=== PATIENT | male | born 1935 | race Caucasian/White ===

== ENCOUNTER 2016-12-12 07:07 | Day surgery (SDC) | payer MEDICARE, OTHER ==
[~2016-12-12] VITALS: Ht 177.8 cm; Wt 86.2 kg
[~2016-12-12 07:07] MED LIST: ASPIR-LOW81 MG PO; CRESTOR20 MG PO; METOPROLOL SUCC50 MG PO; NORCO 5-325 TA1 EACH PO
--- NOTE | 2016-12-12 08:15 | NUR ---
PT SITTING UP IN BED, WATCHING TV. HE IS ALERT AND ORIENTED. HE EXPRESSED SEVERAL TIMES OF HIS READINESS FOR THIS PROCEDURE TO BE OVER. PT EXPRESSED GREAT CONFIDENCE IN DR STEVENS. HE GAVE THE IMPRESSION HE WAS VERY CONTENT BEING BY HIMSELF. PT WAS POLITE, THANKED ME FOR VISITING
--- NOTE | 2016-12-12 08:39 | NUR ---
12/12/16 0839 Jennie Marcum 0821 PATIENT ARRIVES TO PACU SLEEPING, AWAKENS WITH VERBAL STIMULI, ANSWERS QUESTIONS APPROPRIATELY, THEN BACK TO SLEEP. PATIENT PASSING GAS. NC AT 3 LITERS.
--- NOTE | 2016-12-15 09:12 | OR ---
[facility] [address], [place] [address] Signed PREOPERATIVE DIAGNOSES: 1. Personal history of colonic polyps. 2. Right colectomy in 2006. 3. Diverticulosis. POSTOPERATIVE DIAGNOSES: 1. Moderate to severe sigmoid diverticulosis. 2. Ileocolonic anastomosis (80 cm). 3. Indurated prostate, left greater than right. PROCEDURE: Colonoscopy without biopsy. ESTIMATED BLOOD LOSS: None. INDICATIONS: Deana is an 81-year-old gentleman, who has had colonic polyps removed as far back as 2001. I performed his right colectomy in 2006 for tubulovillous adenomatous cecal polyp with dysplasia. Since then, he has had other polyps removed. He also has left-sided diverticulosis. His anastomosis is 80 cm from the anal verge in the proximal transverse colon. He has always done well with Vers e d and fentanyl. 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 He also has a porcine mitral valve. 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 On this occasion, he returns to have his colonoscopy before he heads out on the ocean. He does look a little older, but he remains in excellent shape. In the office, I gave him a pamphlet on colonoscopy, a n d we reviewed the nature of the test along with its risks including but not limited to gas bloating, crampy abdominal pain, bleeding, perforation requiring surgery, and missed diagnosis. We also discussed the need for IV conscious sedation. He is also cristina re that polyps need 8-12 years to become cancer. At some point in his life, if his health starts to fail and he does not believe he is going to live 8-12 years, we can stop doing his colonoscopies. He had expressed understanding, wished to proceed. PROCEDURE NOTE: Deana was taken into our endoscopy suite and placed in the left lateral decubitus position. He was given IV sedation with 7 mg of Versed and 100 mcg of fentanyl. A digital rectal exam was performed. He did have an indurated prostate, it was slightl y enlarged. The left was certainly more prominent than the right. He could always review that with his primary care provider. The adult colonoscope was then introduced and advanced under direct visualization of the camera. He did have significant divertic u la in the sigmoid and distal left colon. They were small to large in size. They were moderate in number and scattered about. There was also some angulation in the sigmoid Electronically Signed By: AMI STEVENS MD 12/15/16 0912 PATIENT NAME: DEANA MELARA OPERATIVE REPORT DATE OF : 35 PHYSICIAN: AMI STEVENS MD REPORT #: [id number] REPORT IS CONFIDENTIAL AND NOT TO BE RELEASED WITHOUT AUTHORIZATION [facility] [address] [place] [id number] Signed colon. Consequently took some extra sedation in a few minutes to get the colonoscope through his sigmoid colon. After that, the colon opened up nicely, and the camera passed readily right up to the anastomosis at about 80 cm. The anastomosis was well healed. There was no evidence of any polyps or cancer in the area of anastomosis. The sco p e was then slowly withdrawn. The rest of the colon was without any polyps on this occasion. The rectum was unremarkable. Upon retroflexion of the scope, he did have some very small internal hemorrhoid tissue. After this, the gas was suctioned out, and the colonoscope removed. Deana tolerated the procedure quite well. RECOMMENDATIONS: Deana was welcomed to follow up in 5 years for repeat colonoscopy so long his health holds up. He might review his prostate exam with his primary care provider. MD BEATRIZ Castillo/Diego /[id number] cc: Dr. Roman Rubio Electronically Signed By: AMI STEVENS MD 12/15/16 0912 PATIENT NAME: DEANA MELARA NIAGARA OPERATIVE REPORT DATE OF : 35 PHYSICIAN: AMI STEVENS MD REPORT #: [id number] REPORT IS CONFIDENTIAL AND NOT TO BE RELEASED WITHOUT AUTHORIZATION
[2017-02-03] MEDS ORDERED: FLOMAX0.4 MG PO (13:24)
[2017-02-04] MEDS ORDERED: LIPITOR20 MG PO (13:06)
== END 2016-12-12 09:40 | disposition home or self-care (01) ==
LOC: OPS 07:07 → DS 07:07 → OPS 08:15 → DS 09:00 → OPS 09:00
PROVIDERS: Colon & Rectal Surgery
PROC: 0DJD8ZZ Inspection of Lower Intestinal Tract, Via Natural or Artificial Opening Endoscopic (ICD-10-PCS; principal; 2016-12-12 08:15)
DX: K57.30 Diverticulosis of large intestine without perforation or abscess without bleeding (principal); K64.8 Other hemorrhoids; I10 Essential (primary) hypertension; I25.10 Atherosclerotic heart disease of native coronary artery without angina pectoris; E78.5 Hyperlipidemia, unspecified; Z87.01 Personal history of pneumonia (recurrent); Z86.010 Personal history of colon polyps; Z90.89 Acquired absence of other organs; Z95.5 Presence of coronary angioplasty implant and graft; Z98.890 Other specified postprocedural states; Z88.0 Allergy status to penicillin; Z88.5 Allergy status to narcotic agent; Z79.899 Other long term (current) drug therapy
CPT/HCPCS: 99152; 99153; J2250; J3010; J7120

== ENCOUNTER 2024-01-05 12:02 | Inpatient (IN) | payer OTHER, MEDICARE ==
[~2024-01-05] VITALS: Ht 177.8 cm; Wt 65.0 kg
[~2024-01-05 12:02] MED LIST changes: +FLOMAX0.4 MG PO; +LIPITOR20 MG PO
[2024-01-05] MEDS ORDERED: ALBUTEROL/IPRATROPIUM 3 ML NEB INH PRN (13:15)
[2024-01-05 13:32] LABS: BASOPHILS 1.4 % (0-2); EOSINOPHILS 4.3 % (0-6); HEMOGLOBIN 13.7 g/dL (12.0-18.0); LYMPHOCYTES 17.1 % (24-44); MCH 29.5 (27-36); MCHC 32.5 g/dl (30-36); MCV 90.7 fl (81-99); MONOCYTES 13.7 % (0-12); NEUTROPHILS 63.5 % (39-80); PLATELET COUNT 150 K/uL (140-440); RBC 4.63 M/ul (4.3-5.7); RDW 15.4 (10.5-15.0)
[2024-01-05 13:52] LABS: ALBUMIN 3.3 g/dL (3.4-5.0); ALBUMIN/GLOBULIN RATIO 0.94 (1.1-2.4); ANION GAP 13.1 (7-21); BILIRUBIN, TOTAL 1.5 ng/dL (0.2-1.0); BUN/CREATININE RATIO 15.83 (6.0-28.6); CALCIUM 8.8 mg/dL (8.5-10.1); CREATININE, SERUM 1.2 mg/dL (0.70-1.30); MAGNESIUM 2.1 mg/dL (1.8-2.4); POTASSIUM 4.1 mmol/L (3.5-5.1); PROTEIN, TOTAL 6.8 g/dL (6.4-8.2)
[2024-01-05 14:02] LABS: PH, VENOUS 7.386 (7.31-7.41)
[2024-01-05] MEDS ORDERED: FUROSEMIDE 40 MG/4 ML VIAL IV ONE (15:00)
--- NOTE | 2024-01-05 17:28 | NUR ---
Pt report received from RN Sana Pereira in ED9. Pt is awake, sister in room. Pt transferred to room 110 via ED Stretcher by this RN. Pt transferred to bed via unassisted scoot method. VS obtained. SPO2 81% on room air, pt placed on 2LPM O2 via NC which increased his SPO2 to 100%, O2 decreased to 1lpm, sats at 97%. Pt is extremely [place] but is able to understand and respond if spoken loudly too. Shortly after arriving to the room, pt stated he needed to use the toilet. 2 person hands on assist for balance to toilet where pt sat to void, unmeasured. Pt's underwear removed as they were soiled with urine, and briefs placed on pt. Pt ambulated with 1PA with FWW back to bed. Pt becomes extremely short of breath whether he is active or not, but it increases with activity. His sats were obtained after he was back in bed. Pt and sister oriented to room and call light. Call light placed in reach, side rails up x4, bed alarm on. Assessment done at this time.
[2024-01-05 17:33] VITALS: BP 115/70
--- NOTE | 2024-01-05 19:24 | NUR ---
REPORT RECEIVED FROM DAY SHIFT RN. PT LYING IN BED ALERT AND ORIENTED. TO SIDE OF BED TO VOID. LINENS AND BRIEF CHANGED. BACK TO BED, TREV FAIR. SpO2 83% ON 1L/NC WITH ACTIVITY. SOB NOTED. PT ABLE TO RECOVER QUICKLY TO LOW 90'S AFTER A MINUTES REST. NO FURTHER NEEDS. WHITE BOARD UPDATED. CALL LIGHT IN REACH. BED ALARM FOR SAFETY.
[2024-01-05] MEDS ORDERED: ALBUTEROL/IPRATROPIUM 3 ML NEB INH SCH (20:00)
--- NOTE | 2024-01-05 20:25 | NUR ---
BED ALARM SOUNDING. ASSISTED TO SIDE OF BED FOR VOID IN URINAL W FWW . BACK IN BED. NC IN PLACE. CPOX ON. BED ALARM ON. LIGHTS OFF IN ROOM.
[2024-01-05 20:52] VITALS: BP 115/64
--- NOTE | 2024-01-05 21:01 | NUR ---
PT BACK TO BED FROM USING URINAL. EVENING ASSESSMENT COMPLETE. PT DENIES PAIN OR NAUSEA. DENIES SOB. TACHYPNEA NOTED. SpO2 97% WITH 2L/NC IN PLACE. LUNGS CLEAR. CPOX IN PLACE. PT DENIES QUESTIONS OR CONCERNS. CALL LIGHT IN REACH. BED ALARM FOR SAFETY.
--- NOTE | 2024-01-05 23:09 | NUR ---
BED ALARM SOUNDING. PT UP TO SIDE OF BED TO VOID. PT INCONTINENT WELL. NEW BRIEF PROVIDED. BACK TO BED. BED ALARM IN PLACE.
[2024-01-06] VITALS (10 sets, daily range): BP systolic 94–128; BP diastolic 44–81
--- NOTE | 2024-01-06 00:39 | NUR ---
BED ALARM SOUNDING. PT UP TO SIDE OF BED WITH FWW AND 1PA TO VOID 175 ML CLEAR YELLOW URINE. BACK TO BED, TREV WELL. DENIES SOB. INCREASED RESPIRATIONS WITH ACTIVITY NOTED. SpO2 REMAINS >90% WITH 2L/NC. NO FURTHER NEEDS. BED ALARM FOR SAFETY. CALL LIGHT IN REACH.
--- NOTE | 2024-01-06 02:45 | NUR ---
PT RESTING IN BED WITH EYES CLOSED LYING ON LEFT SIDE. RESPIRATIONS EVEN. SpO2 98% WITH 2L/NC IN PLACE. HR 60'S. BED ALARM IN PLACE. CALL LIGHT IN REACH.
--- NOTE | 2024-01-06 03:11 | NUR ---
IN TO ASSIST PT USE URINAL AT BEDSIDE WITH 1PA AND FWW. PT INCONTINENT WELL. ALYCIA CARE DONE AND CLEAN BRIEF PROVIDED. LINENS CHANGED. BACK TO BED. PT NOTED TO BE TACHYPNEIC WITH ACTIVITY. DENIES SOB. SpO2 REMAINS >90% WITH 2L/NC DURING ACTIVITY. LUNGS CLEAR THROUGHOUT. VS OBTAINED, WNL. NO FURTHER NEEDS. BED ALARM IN PLACE. CALL LIGHT IN REACH.
[2024-01-06 05:26] LABS: RBC 4.36 M/ul (4.3-5.7)
[2024-01-06 05:28] LABS: BASOPHILS 1.3 % (0-2); EOSINOPHILS 5.2 % (0-6); HEMATOCRIT 39.6 % (35.0-50.0); LYMPHOCYTES 19.5 % (24-44); MCH 29.9 (27-36); MCHC 32.9 g/dl (30-36); MCV 90.9 fl (81-99); PLATELET COUNT 136 K/uL (140-440); RDW 15.5 (10.5-15.0)
[2024-01-06 05:38] LABS: ANION GAP 9.8 (7-21); BUN/CREATININE RATIO 15.55 (6.0-28.6); CALCIUM 8.6 mg/dL (8.5-10.1); CREATININE, SERUM 1.35 mg/dL (0.70-1.30); POTASSIUM 3.8 mmol/L (3.5-5.1)
--- NOTE | 2024-01-06 05:48 | NUR ---
LAB IN FOR MORNING DRAW. PT UP TO SIDE OF BED TO VOID WITH 1PA AND FWW TO VOID. DAILY WEIGHT OBTAINED. BACK TO BED, TREV WELL. VS AND I&O OBTAINED. SpO2 HIGH 90'S ON 2L/NC. OXYGEN TITRATED TO OFF AT THIS TIME. CPOX IN PLACE. PT DENIES FURTHER NEEDS. BED ALARM FOR SAFETY. CALL LIGHT IN REACH.
--- NOTE | 2024-01-06 07:32 | NUR ---
IN ROOM TO ADMIN LASIX PER EMAR. IV FLUSHED WELL. PT RESTING IN BED. ASSESSMENT COMPLETE. PT C/O PAIN IN HIPS, 08/09. PT DENIES ANY NEEDS AT THIS TIME, CALL LIGHT WITHIN REACH.
--- NOTE | 2024-01-06 07:49 | NUR ---
REPORT FROM SYED COOK. PT LAYING ON SIDE IN BED WITH EYES CLOSED. O2 TURNED OFF, SATS 93%.
--- NOTE | 2024-01-06 08:10 | NUR ---
ECHO IN ROOM. PT UP TO RESTROOM AGAIN. 1 PERSON TASH FWW. PT DOES WELL JUST OCCASIONALLY TIPPY.
[2024-01-06] MEDS ORDERED: FUROSEMIDE 40 MG/4 ML VIAL IV SCH (09:00)
--- NOTE | 2024-01-06 09:00 | NUR ---
Spoke with Will. He states he lives alone in a home with 4 steps. He has 1 rail on the steps and a rail where he vincent to get to the steps. He has a 4 ww and a cane. Pt states he drives, but his license was pulled by the [facility]. He is upset by this. Pt states his sister shops and drives him, he does his own cleaning, and cooks in the microwave. He denies any needs. I discussed with him he would most likely qualify for some cg hours through the [employer]. He declines and states, he does not want or need. He [facility] He cannot remember who the provider is. I called and per the [facility], his pcp is Imani Guerrero. They are unsure if this is a PA, SENIOR ARCHITECT, or MD. Pt states he will go home on dc. He denies financial issues and states he has a disability pension from the [facility] and his SS. Pt is not interested in any outside help, except from his sister. I attempted to call his sister, but could not reach. Sister is Smita Sin [phone].
--- NOTE | 2024-01-06 09:04 | NUR ---
PT UP TO RESTROOM AGAIN. ANUSHKA UNABLE TO DO ECHO TODAY, PARTS ORDERED FOR HER MACHINE.
--- NOTE | 2024-01-06 10:32 | NUR ---
UR CLINICAL REVIEW: [facility]- [facility]ET INPATIENT STATUS [facility] 01/05/24 @ 1627 ORDER MACTHED REG NO AUTH REQUIRED PER [facility] GUIDELINES DISCHARGE TO HOME WHEN STABLE
--- NOTE | 2024-01-06 10:36 | NUR ---
VISITED DURING SPIRITUAL CARE ROUNDS. PT SUPPORTED BY IN ROOM, STRONG RELATIONAL AND [employer] IN EVIDENCE. PT DECLINED CREDIT REPRESENTATIVE VISITS, STATING ONLY INTERESTED IN [employer]. [place]. DECLINED OFFER TO CALL [employer]. [employer]. DIGITAL PRODUCT SPECIALIST PROVIDED SUPPORTIVE PRESENCE, HOSPITALITY, FACILITATED CONNECTION TO [employer], PROVIDED PRAYER. PT AND EXPRESSED GRATITUDE.
[2024-01-06] MEDS ORDERED: PHARMACY RENAL DOSE ADJUSTMENT 1 DOSE MISC PO SCH (12:00)
--- NOTE | 2024-01-06 13:22 | NUR ---
PT UP TO THE RESTROOM AGAIN. LARGE QTY URINE OUTPUT TODAY. WOULD LIKE TO TAKE A NAP.
[2024-01-06] MEDS ORDERED: VENTOLIN HFA18 GM INH (13:30)
[2024-01-06] MEDS ORDERED: LIPITOR40 MG PO (13:32)
[2024-01-06] MEDS ORDERED: PLAVIX75 MG PO (13:33)
[2024-01-06] MEDS ORDERED: PROSCAR5 MG PO (13:36)
--- NOTE | 2024-01-06 13:36 | NUR ---
Received a call from pts daughter, Anny. She is stating pt need assistance. I let her know, the pt has declined all assistance. I am unable to ask for a cg if he does not want one. I offered her the phone number for the the [employer] program. A THEATER EDUCATION TEACHER and RN could see him in the home and he could have a access to CG. Daughter is on her way from [place]. She will find me tomorrow. She states she is mainly looking for a way to help him. She is able to visit 4 times a year and lives hours away. She was hoping we could force him to accept assistance. I let her know we cannot force anyone to do anything.
[2024-01-06] MEDS ORDERED: COZAAR25 MG PO (13:38)
--- NOTE | 2024-01-06 14:20 | NUR ---
PT UP TO BR 1 PA W FWW. BACK TO CHAIR. VITALS AND I'S AND O'S COMPLETE. ASSESSMENT COMPLETE. PT DENIES ANY NEEDS AT THIS TIME, CALL LIGHT WITHIN REACH
--- NOTE | 2024-01-06 14:46 | NUR ---
MED REC COMPLETE
[2024-01-06] MEDS ORDERED: TAMSULOSIN HCL 0.4 MG CAP PO SCH (15:22)
--- NOTE | 2024-01-06 15:26 | NUR ---
PT UP TO BR, 1 PA W FWW. PT C/O SORENESS ON BUTTOCKS/COCCYX, ALLEVYN PLACED ON COCCYX. PT BACK TO CHAIR, CHAIR ALARM SET. PT DENIES ANY NEEDS AT THIS TIME, CALL LIGHT WITHIN REACH.
--- NOTE | 2024-01-06 18:01 | NUR ---
PT UP TO RESTROOM FOR BM. NOTICED PT HAD A FAST BREATHING EPISODE, LISTENED TO HR WITH STETH AND FELT PULSE, VERY IRREGULAR. CALLED DR Mai FOR EKG, WILL CALL WITH RESULTS.
[2024-01-06] MEDS ORDERED: METOPROLOL TARTRATE 25 MG TAB PO ONE (18:30)
[2024-01-06] MEDS ORDERED: METOPROLOL TARTRATE 5 MG/5 ML VIAL IV ONE (18:30)
[2024-01-06] MEDS ORDERED: METOPROLOL TARTRATE 25 MG TAB PO SCH (18:30)
--- NOTE | 2024-01-06 18:57 | NUR ---
PT PACER INTEROGATED WITH REP ON PHONE. REPORT WILL BE FAXED TO ED FAX MACHINE. CALLED ED TO HAVE THEM SEND IT HERE. DTR [place] IN ROOM AND BROUGHT HEARING AIDS AND PACER CARD.
--- NOTE | 2024-01-06 19:33 | NUR ---
REPORT RECEIVED FROM DAY SHIFT RN. PT SITTING IN RECLINER ALERT AND ORIENTED. DENIES NEEDS. WHITE BOARD UPDATED. CALL LIGHT IN REACH. DAUGHTER IN ROOM. CHAIR ALARM FOR SAFETY.
--- NOTE | 2024-01-06 20:09 | NUR ---
SBA BACK TO BED. EVENING ASSESSMENT COMPLETE. PT DENIES PAIN OR NAUSEA. DENIES SOB. RA. LUNGS CLEAR. SpO2 95%. IRREGULAR BREATHING NOTED AT TIMES. CPOX IN PLACE. TELE #[address] HR IRREGULAR. PT DENIES CHEST PAIN. VS AND I&O OBTAINED. NO FURTHER NEEDS AT THIS TIME. CALL LIGHT IN REACH. BED ALARM FOR SAFETY.
--- NOTE | 2024-01-06 20:42 | NUR ---
BED ALARMING. PATIENT UP AT BEDSIDE TO USE THE URINAL WITH ASSISTANCE. VOIDED 1125ML YELLOW URINE. PATIENT IS BACK IN BED. DENIES FURTHER NEEDS AT THIS TIME. BED ALARM SET ON FOR SAFETY.
--- NOTE | 2024-01-06 21:20 | NUR ---
NOTIFIED OF PT BP AND MADE AWARE INTERROGATION REPORT HAS YET TO BE RECEIVED. HOLD PARAMETERS RECEIVED FOR PO METOPROLOL VERIFIED WITH READBACK METHOD.
--- NOTE | 2024-01-06 21:26 | NUR ---
[facility] NO ANSWER. ON FINAL ATTEMPT, SPOKE TO REP JASSO VIA PHONE AND INFORMED HER THAT REPORT HAS YET TO BE FAXED AND WAS COMPLETED ON @ APPROX 1830. CONFIRMED WITH ROMERO, FAX # FOR REPORT TO BE FAXED TO IS [phone]. REP ALSO GIVEN MAIN PHONE # FOR HOSPITAL FOR CALL BACK IF THERE IS AN ISSUE WITH FAX DELIVERY. PRIMARY RN JOEY UPDATED.
--- NOTE | 2024-01-06 21:40 | NUR ---
BED ALARM SOUNDING. PT UP TO SIDE OF BED TO VOID. BRIEF CHANGED DUE TO INCONTINENCE. PT REPORTS SOB. IRREGULAR BREATHING NOTED. SpO2 BRIEFLY DOWN TO 70'S AFTER ACTIVITY. 2L/NC PLACED. SpO2 QUICKLY BACK TO MID 90'S. GAIT WEAK AND UNSTEADY. DISCUSSED WITH PT ACTIVITY TOLERANCE AND PT AGREES HE IS "EXHAUSTED." PT AGREEABLE TO MALE PUREWICK TO ALLOW FOR REST.
[2024-01-07] VITALS (10 sets, daily range): BP systolic 89–123; BP diastolic 52–81
[2024-01-07] MEDS ORDERED: METOPROLOL TARTRATE 25 MG TAB PO SCH
--- NOTE | 2024-01-07 00:31 | NUR ---
BED ALARM SOUNDING. PT REPOSITIONING SELF IN BED. VS OBTAINED. MD UPDATED. TELEPHONE ORDERS RECEIVED VERIFIED WITH READBACK METHOD TO HOLD MIDNIGHT DOSE OF METOPROLOL DUE TO HR OCCASIONALLY IN THE 50'S.
--- NOTE | 2024-01-07 01:05 | NUR ---
bed alarm going off, pt attempting to get oob. pt reminded of male external catheter, pt back laying in bed and verbalized understanding. bed alarm resumed and call light in reach. primary rn updated.
--- NOTE | 2024-01-07 02:00 | NUR ---
BED ALARM SOUNDING. PT NEEDS TO VOID. REMINDED OF MALE EXTERNAL CATHETER. CATHETER PATENT. ATTENDS DRY. ASSISTED TO REPOSITION. ASSESSMENT COMPLETE. NO FURTHER NEEDS.
--- NOTE | 2024-01-07 03:14 | NUR ---
BED ALARM SOUNDING. PT NEED TO VOID, STATES "I CAN'T PEE IN BED." EXTERNAL CATHETER REMOVED WITH ADHESIVE REMOVER. PT STOOD AT SIDE OF BED WITH 2PA AND FWW TO VOID 125 ML. ALYCIA CARE DONE. CLEAN ATTENDS IN PLACE. PT BACK TO BED. GAIT WEAK AND UNSTEADY. PT IMPULSIVE WITH DIFFICULTY FOLLOWING DIRECTIONS DUE TO HARD OF HEARING EVEN WHILE USING HEARING AID DEVICE. INCREASED WORK OF NOTED WITH ACTIVITY. PT REPORTS SOB. SpO2 REMAINS MID 90'S ON RA. RESPIRATIONS EVEN AT REST. PT DENIES FURTHER NEEDS. CALL LIGHT IN REACH. BED ALARM FOR SAFETY.
--- NOTE | 2024-01-07 06:51 | NUR ---
PT RESTING WITH EYES CLOSED. AWAKENS EASILY. VS AND I&O OBTAINED. DAILY WEIGHT OBTAINED. SCHEDULED MEDS ADMIN PER EMAR. PT DENIES FURTHER NEEDS. CALL LIGHT IN REACH. BED ALARM FOR SAFETY.
--- NOTE | 2024-01-07 07:20 | NUR ---
RECEIVED REPORT FROM SYED COOK. PT LYING IN BED, CPOX IN PLACE WITH O2 SATURATION AT >94%. CALL LIGHT WITHIN REACH.
--- NOTE | 2024-01-07 07:30 | NUR ---
PT RESTING IN BED. PT UP TO CHAIR SBA W FWW. LINENS CHANGED. PT DENIES RESTROOM NEEDS. COFFEE PROVIDED. PT DENIES ANY NEEDS AT THIS TIME CALL LIGHT WITHIN REACH
--- NOTE | 2024-01-07 08:15 | NUR ---
PT UP TO CHAIR EATING BREAKFAST, CHAIR ALARM ON FOR SAFETY. PT RESPONDS APPROPRIATELY TO ASSESSMENT AND QUESTIONS, CONTINUES TO BE DISORIENTED TO DATE. HEART TONES IRREGULAR, 87BPM UPON AUSCULTATION. NO EDEMA PRESENT AT THIS TIME. PT EATING BREAKFAST AND TAKING PO MEDICATION W/O DIFFICULTY. PT STATES NO NEEDS AT THIS TIME, CALL LIGHT WITHIN REACH.
[2024-01-07 08:56] LABS: BASOPHILS 0.8 % (0-2); EOSINOPHILS 4.3 % (0-6); HEMATOCRIT 46.2 % (35.0-50.0); HEMOGLOBIN 15.3 g/dL (12.0-18.0); LYMPHOCYTES 13.5 % (24-44); MCH 29.9 (27-36); MCHC 33.2 g/dl (30-36); MCV 90.1 fl (81-99); MONOCYTES 12.6 % (0-12); NEUTROPHILS 68.8 % (39-80); PLATELET COUNT 168 K/uL (140-440); RBC 5.12 M/ul (4.3-5.7); RDW 15.4 (10.5-15.0)
[2024-01-07 09:08] LABS: ANION GAP 11.4 (7-21); BUN/CREATININE RATIO 22.11 (6.0-28.6); CALCIUM 8.8 mg/dL (8.5-10.1); CREATININE, SERUM 1.04 mg/dL (0.70-1.30); MAGNESIUM 1.7 mg/dL (1.8-2.4); POTASSIUM 3.4 mmol/L (3.5-5.1)
--- NOTE | 2024-01-07 09:35 | NUR ---
pt up in chair. vitals and i's and o's complete. pt standing by chair to use urinal 1 pa. new brief put on pt. pt denies any needs at this time, call light within reach.
--- NOTE | 2024-01-07 09:43 | NUR ---
PT UP TO CHAIR, STATES HE NEEDS TO USE URINAL. PT STANDS AT CHAIR TO USE URINAL, DENIES SOB. PT BACK UP TO CHAIR, DENIES ANY NEEDS AT THIS TIME, CALL LIGHT WITHIN REACH, DAUGHTER AT THE BEDSIDE.
--- NOTE | 2024-01-07 09:46 | NUR ---
SPOKE WITH DAUGHTER, JACQUES, STATES PATIENT HAS AGREED TO HAVE A CAREGIVER AT HOME. INFORMED OF NEED TO COMPLETE PAPERWORK FOR [facility] TO HAVE SENT TO BEGIN PROCESS TO GETTING A CAREGIVER. CONCERNED ABOUT PT, BUT DAUGHTER STATES SHE HAS SPOKEN TO PATIENT AND HE HAS AGREED TO HOME HEALTH PT WELL IF NEEDED. DAUGHTER ALSO PROVIDES COPY OF MEDICAL ADVANCED DIRECTIVE, POA AND WILL AND TESTAMENT.
--- NOTE | 2024-01-07 10:29 | NUR ---
VISITED DURING SPIRITUAL CARE ROUNDS. PT WORKING WITH PHYSICAL THERAPY. DID NOT INTERRUPT. PROVIDED PRAYER.
--- NOTE | 2024-01-07 10:34 | NUR ---
pt up working with OT
--- NOTE | 2024-01-07 10:40 | NUR ---
CALL LIGHT ANSWERED. PT NEEDING TO USE BR. PT TO BR 1 PA W FWW. BACK TO CHAIR. CHAIR ALARM SET. PT DENIES ANY NEEDS AT THIS TIME, CALL LIGHT IN REACH
--- NOTE | 2024-01-07 10:47 | NUR ---
CONNECTED WITH FAMILY IN [place] DURING SPIRITUAL CARE ROUNDS. STRONG RELATIONAL AND [employer] EXHIBITED. NEEDLE GRADER PROVIDED SUPPORTIVE PRESENCE, FACILITATED CONNECTION WITH [employer], PROVIDED PRAYER. DAUGHTER EXPRESSED GRATITUDE, HOPE.
--- NOTE | 2024-01-07 10:52 | NUR ---
AT THE BEDSIDE. PT AND DAUGHTER STATE NO NEEDS AT THIS TIME, CALL LIGHT WITHIN REACH.
--- NOTE | 2024-01-07 11:02 | NUR ---
PT DAUGHTER USES CALL LIGHT D/T PT STATING HE NEEDS TO USE THE URINAL. THIS RN AND PHYSICAL THERAPY TO BEDISIDE, PT STANDS AT CHAIR AND USES URINAL, DRIBBLING INTO BREIFS, NEW BRIEFS WITH PAD IN PLACE. PT UP FOR WALK WITH PHYSICAL THERAPY. PT DAUGHTER STATES NO NEEDS AT THIS TIME.
[2024-01-07] MEDS ORDERED: APIXABAN 5 MG TAB PO SCH (11:06)
--- NOTE | 2024-01-07 11:36 | NUR ---
PT WORKING WITH PT. CCU CALLED TO CHECK ON PT DUE TO RHYTHM ON TELE. RN NOTIFIED
--- NOTE | 2024-01-07 11:50 | NUR ---
PT STANDS AT CHAIR TO USE URINAL, BACK TO CHAIR. PT TAKES PO MEDICATIONS W/O DIFFICULTY. PT STATES NO FURTHER NEEDS AT THIS TIME, LUNCH SET UP ON TRAY.
--- NOTE | 2024-01-07 12:15 | NUR ---
PT UP IN CHAIR EATING LUNCH
--- NOTE | 2024-01-07 12:55 | NUR ---
PT RESTING IN BED. VITALS AND IS AND OS COMPLETE. PT DENIES ANY NEEDS. WATER REFILLED. CALL LIGHT IN REACH/.
--- NOTE | 2024-01-07 14:13 | NUR ---
[facility] and fax[facility] to [facility].
--- NOTE | 2024-01-07 15:57 | NUR ---
DISCUSSED DC PLACEMENT AT SNF WITH PATIENT AND DAUGHTER. PATIENT REFUSES SNF PLACEMENT. DISCUSSED CAREGIVER WITH PATIENT, VERBALIZES HE IS OK WITH HAVING A CAREGIVER IN THE HOME AND HOME HEALTH PT/OT AT DISCHARGE. INFORMATION FOR FAMILY RESOURCES GIVEN TO DAUGHTER.
--- NOTE | 2024-01-07 16:45 | NUR ---
PT USES URINAL INDEPENDENTLY WHILE IN CHAIR, STATES NO NEEDS AT THIS TIME, CALL LIGHT WITHIN REACH.
--- NOTE | 2024-01-07 17:24 | NUR ---
PT USES URINAL INDEPENDENTLY IN CHAIR. URINAL EMPTIED. PT UP TO CHAIR EATING DINNER INDEPENDENTLY. PT STATES NO NEEDS AT THIS TIME, CALL LIGHT WITHIN REACH.
--- NOTE | 2024-01-07 19:05 | NUR ---
REPORT RECEIVED FROM BEATRIZ LYNCH. pt RESTING IN THE BED WITH EYES CLOSED. BED ALARMS ON. CALL LIGHT WITHIN REACH.
--- NOTE | 2024-01-07 20:36 | NUR ---
MAINTENANCE MECHANIC OBTAINED VITALS AND I&O. PT B/P WAS 89/60 RN NOTIFIED. PT STATES NO FURTHER NEEDS AT THIS TIME. CALL LIGHT WITHIN REACH.
--- NOTE | 2024-01-07 21:10 | NUR ---
ASSESSMENT DONE. pt DESATTING TO 77% AND THEN O2 REBOUNDING BACK UP TO 96%. pt REMINDED TO TAKE DEEP BREATHS. pt ASKED TO GO PEE. WHEN pt BACK IN BED pt O2 SATURATION REMAINED ABOVE 90%. LUNG SOUNDS ARE CLEAR. BED ALARM ON. URINAL AT BED SIDE. SCHEDULED MEDICATION ADMINISTERED, SEE MAR. NO OTHER NEEDS AT THIS TIME. CALL LIGHT WITHIN REACH.
--- NOTE | 2024-01-07 22:22 | NUR ---
BED ALARM ANSWERED. PT WAS AT EDGE OF BED STATING THAT HE NEEDED TO USE URINAL. POWERHOUSE ELECTRICIAN ASSISTED PT TO STAND AT BEDSIDE WITH FWW. PT USED URINAL. OUTPUT MEASURED. PT ASSISTED BACK INTO BED. PT STATES NO FURTHER NEEDS AT THIS TIME. CALL LIGHT PLACED WITHIN REACH. BED ALARM ON.
--- NOTE | 2024-01-07 23:58 | NUR ---
pt RESTING WITH EYES CLOSED, RR EVEN AND UNLABORED. CALL LIGHT WITHIN REACH.
[2024-01-08] VITALS (10 sets, daily range): BP systolic 96–112; BP diastolic 49–66
--- NOTE | 2024-01-08 00:45 | NUR ---
EDGE BLACKER AND RN ENTERED ROOM. VITALS AND I&O OBTAINED. PT STATES NO FURTHER NEEDS AT THIS TIME. CALL LIGHT WITHIN REACH.
--- NOTE | 2024-01-08 01:29 | NUR ---
BED ALARM ANSWERED. PT NEEDED TO VOID. MANUFACTURING QUALITY MANAGER ASSISTED PT TO STAND AT BEDSIDE AND USE URINAL. OUTPUT MEAUSRED. PT ASSISTED BACK TO BED. PT STATES NO FURTHER NEEDS AT THIS TIME. CALL LIGHT PLACED WITHIN REACH.
--- NOTE | 2024-01-08 01:30 | NUR ---
REPORT RECEIVED FROM NURSE KATE. PATIENT BACK IN BED AFTER VOIDING. BED ALARM ON, CALL LIGHT WITHIN REACH.
--- NOTE | 2024-01-08 03:30 | NUR ---
PATIENT RESTING IN BED WITH EYES CLOSED. RESPIRATIONS EVEN AND UNLABORED. CPOX READINGS WNL. CALL LIGHT WITHIN REACH, BED ALARM ON.
--- NOTE | 2024-01-08 04:49 | NUR ---
BED ALARM ANSWERED. PT SITTING AT EDGE OF BED STATING HE NEEDED TO VOID. PUMP ASSEMBLER ASSISTED PT WITH URINAL. OUTPUT MEASURED. PT ASSISTED BACK INTO BED. PUMP ASSEMBLER OBTAINED VITALS AND I&O. PT STATES NO FURTHER NEEDS AT THIS TIME. CALL LIGHT WITHIN REACH. BED ALARM ON.
--- NOTE | 2024-01-08 05:29 | NUR ---
IN ROOM TO FIX TELE LEADS. NO ADDITIONAL NEEDS OR CONCERNS VERBALIZED BY pt, CALL LIGHT IN REACH AND BED ALARM ON FOR SAFETY.
--- NOTE | 2024-01-08 06:00 | NUR ---
PATIENT RESTING IN BED. AM MEDICATION GIVEN. DAILY WEIGHT OBTAINED. TELE IN PLACE READINGS REMAIN NORMAL PER PATIENT BASELINE. PATIENT IS ON 2L OXYGEN NC WHILE SLEEPING. NO FURTHER NEEDS AT THIS TIME. CALL LIGHT WITHIN REACH. BED ALARM ON.
--- NOTE | 2024-01-08 06:39 | NUR ---
BED ALARM ANSWERED. PT SITTING ON EDGE OF BED STATING HE NEEDED TO VOID. WOOD MILLER ASSISTED PT TO STAND AT BEDSIDE AND USE URINAL. OUTPUT MEASURED PT ASSISTED BACK TO BED. URINAL EMPTIED. PT STATES NO FURTHER NEEDS AT THIS TIME. CALL LIGHT WITHIN REACH. BED ALARM ON.
--- NOTE | 2024-01-08 07:45 | NUR ---
Received report from [facility] nurse. Pt is awake lying in bed. Pt greeted this RN. Denies needs at this time. Respirations even and regular CPOX in place.
[2024-01-08 08:47] LABS: ANION GAP 7.6 (7-21); BUN/CREATININE RATIO 21.56 (6.0-28.6); CALCIUM 8.5 mg/dL (8.5-10.1); CREATININE, SERUM 1.02 mg/dL (0.70-1.30); MAGNESIUM 1.7 mg/dL (1.8-2.4); POTASSIUM 3.6 mmol/L (3.5-5.1)
--- NOTE | 2024-01-08 09:14 | NUR ---
MANAGER ENDOSCOPY WENT INTO PATIENTS ROOM TO ASSIST WITH AMBULATING PATIENT FROM BED TO BATHROOM AND THEN TO THE CHAIR. MANAGER ENDOSCOPY ASSISTED PATIENT TO BATHROOM AND PROVIDED PATIENT WITH NEW PULL UP. MANAGER ENDOSCOPY THEN ASSISTED PATIENT TO CHAIR, CHAIR ALARM SET, CALL LIGHT WITHIN REACH, NO FURTHER NEEDS AT THIS TIME.
--- NOTE | 2024-01-08 09:21 | NUR ---
RA TRIAL DONE AND REMAINS ON RA WITH SpO2 AT 94%.
--- NOTE | 2024-01-08 10:23 | NUR ---
RESPONDED TO REQUEST BY FAMILY TO ARRANGE BURGLAR ALARM ASSEMBLER VISIT. LEFT NOTE IN SACRISTRY TO REQUEST VISIT.
--- NOTE | 2024-01-08 10:37 | NUR ---
VISITED WITH DAUGHTER IN HALLWAY. PROVIDED ANXIETY CONTAINMENT, SUPPORTIVE PRESENCE, NORMALIZED EXPERIENCE, PROVIDED HOSPITALITY, PRAYER. DAUGHTER EXPRESSED GRATITUDE.
--- NOTE | 2024-01-08 10:57 | NUR ---
Spoke with Isreal and his daughter, Anny. Pt using hearing device. Gave information for the IM letter and pt denies wanting to appeal. Per 8:[address] Cobb pt will dc tomorrow. Daughter wanting HH from [facility] as they have used them in the past. We did discuss as the [facility] is the primary pay[facility], it will need to be authed. I will fax to the [facility]. This can take up to 2 weeks or more. We also discussed the home based program and I will give her the phone number for Home based care and Nerissa [employer] that assist with cg in the home. Per daughter she will hire cg until the [facility] is able to provide. She states they will have medicare pay and I let her know as a routine insurance and Medicare do not cover cg in the home. This will be self pay. They deny further questions.
--- NOTE | 2024-01-08 11:24 | NUR ---
Rounded on pt. Pt respirations even and regular. Pt is currently working with therapy. Daughter at bedside.
[2024-01-08] MEDS ORDERED: MAGNESIUM SULFATE 2 GM/50 ML BAG IV SCH (12:30)
--- NOTE | 2024-01-08 12:53 | EKG ---
[facility] [address] [facility] [place] [address] Signed Atrial-paced rhythm Right bundle branch block T wave abnormality, consider inferolateral ischemia Abnormal ECG When compared with ECG of 03-FEB-2017 13:10, premature ventricular complexes are no longer present QRS axis shifted right T wave inversion now evident in Inferior leads T wave inversion now evident in Lateral leads Confirmed by Brittney Carvajal MD ([id number]) on 01/08/2024 12:53:14 PM Electronically Signed By: BRITTNEY CARVAJAL 01/08/24 1253 PATIENT NAME: DEANA MELARA OLEG Electrocardiogram DATE OF : 35 PHYSICIAN: BRITTNEY CARVAJAL REPORT #: [id number] REPORT IS CONFIDENTIAL AND NOT TO BE RELEASED WITHOUT AUTHORIZATION
--- NOTE | 2024-01-08 12:54 | EKG ---
[facility] [address] [place] [address] Signed Suspect unspecified pacemaker failure Atrial fibrillation with rapid ventricular response with frequent ventricular-paced complexes Right bundle branch block T wave abnormality, consider inferolateral ischemia Abnormal ECG When compared with ECG of 05-JAN-2024 13:13, (Unconfirmed) Electronic ventricular pacemaker has replaced Electronic atrial pacemaker Vent. rate has increased BY 46 BPM Confirmed by Brittney Carvajal MD ([id number]) on 01/08/2024 12:54:37 PM Electronically Signed By: BRITTNEY CARVAJAL 01/08/24 1254 PATIENT NAME: DEANA MELARA OLEG Electrocardiogram DATE OF : 35 PHYSICIAN: BRITTNEY CARVAJAL REPORT #: [id number] REPORT IS CONFIDENTIAL AND NOT TO BE RELEASED WITHOUT AUTHORIZATION
--- NOTE | 2024-01-08 12:54 | EKG ---
[facility] [address] [facility] [place] [address] Signed AV dual-paced rhythm with prolonged AV conduction Abnormal ECG When compared with ECG of 06-JAN-2024 18:01, (Unconfirmed) Vent. rate has decreased BY 45 BPM Confirmed by Brittney Carvajal MD ([id number]) on 01/08/2024 12:54:20 PM Electronically Signed By: BRITTNEY CARVAJAL 01/08/24 1254 PATIENT NAME: ABDIRAHMAN MELARADAMARIS DEJESUS Electrocardiogram DATE OF : 35 PHYSICIAN: BRITTNEY CARVAJAL REPORT #: [id number] REPORT IS CONFIDENTIAL AND NOT TO BE RELEASED WITHOUT AUTHORIZATION
--- NOTE | 2024-01-08 13:50 | NUR ---
Rounded on pt. Pt is sitting up in chair. Respirations even and regular. IV mag running. Denies needs att.
--- NOTE | 2024-01-08 15:05 | NUR ---
[place] [facility]INICAL [place] [facility] [place] [facility] INPT 01/05/24 @ 1627 ORDER MACTHED REG NO AUTH REQUIRED PER [facility] GUIDELINES DISCHARGE TO HOME WHEN STABLE 01/11/24
--- NOTE | 2024-01-08 15:11 | NUR ---
PATIENT USED CALL LIGHT TO HAVE ROLLED GLASS CROSSCUTTER ASSISTED PATIETN WITH USING THE URINAL. PATIENT WANTED TO SIT DOWN USING THE URINAL, ROLLED GLASS CROSSCUTTER ASSISTED PATIENT USING THE URINAL. PATIENT HAD MISSED URINAL AND GOT A SMALL AMOUNT OF URINE ON SHEET COVERING THE CHAIR. ROLLED GLASS CROSSCUTTER PROVIDED A FRESH SHEET TO OVER THE CHAIR AND A FRESH PULL UP. CHAIR ALARM HAS BEEN SET, CALL LIGHT WITHIN REACH, PATIENT HAS NO FURTHER NEEDS AT THIS TIME.
--- NOTE | 2024-01-08 15:17 | NUR ---
Rounded on pt. Pt appears to be sleeping in chair. Respirations even and regular. CPOX on pt 92% on RA. Call light within reach.
--- NOTE | 2024-01-08 16:24 | NUR ---
Rounded on pt. Pt appears to be sleeping comfortably in chair. Respirations even and regular. Call light within reach.
--- NOTE | 2024-01-08 16:33 | NUR ---
PATIENT USED CALL LIGHT TO LET REHABILITATION AIDE/SCHEDULER KNOW THEY NEEDED TO USE THE URINAL. REHABILITATION AIDE/SCHEDULER ASSISTED PATIENT WITH URINAL. REHABILITATION AIDE/SCHEDULER RECORDED PATIENTS VOIDINGS ON CHART IN ROOM. CALL LIGHT WITHIN REACH, NO FURTHER NEEDS AT THIS TIME.
--- NOTE | 2024-01-08 18:07 | NUR ---
Rounded on pt. Pt is sitting up in chair eating dinner. Pt remains on room air. Respirations even and regular. Denies needs att.
--- NOTE | 2024-01-08 18:34 | NUR ---
Assisted pt to restroom. Pt ambulated with 1PA FWW. Pt is unsteady on feet. Respirations even and regular. Pt remains on CPOX on room air. Denies any other needs att. Call light within reach.
--- NOTE | 2024-01-08 19:05 | NUR ---
REPORT RECEIVED FROM TOMAS LYNCH. BOARD UPDATED. pt RESTING IN THE BED. CALL LIGHT WITHIN REACH. BED ALARM ON.
--- NOTE | 2024-01-08 20:30 | NUR ---
ASSESSMENT AND VITAL SIGNS DONE. pt STOOD AT BED SIDE TO USE URINAL. NEW CHUX PLACED. SCHEDULED MEDICATION ADMINISTERED, SEE MAR. pt LUNG SOUNDS ARE CLEAR. pt ON RA. pt BACK TO BED. CALL LIGHT WITHIN REACH. NO OTHER NEEDS AT THIS TIME.
--- NOTE | 2024-01-08 23:00 | NUR ---
pt UP TO USE THE URINAL. 2LNC PLACED ON pt DUE TO pt DESATTING WHILE HE WAS SLEEPING. pt BACK TO BED. pt DENIES ANY OTHER NEEDS AT THIS TIME. CALL LIGHT WITHIN REACH.
[2024-01-09] VITALS (12 sets, daily range): BP systolic 95–128; BP diastolic 57–72
--- NOTE | 2024-01-09 00:36 | NUR ---
VITAL SIGNS AND I&Os DONE. SCHEDULED MEDICATION ADMINISTERED, SEE MAR. pt UP TO THE BED SIDE TO USE URINAL. pt BACK TO BED. 2LNC. pt DENIES ANY OTHER NEEDS AT THIS TIME. CALL LIGHT WITHIN REACH.
--- NOTE | 2024-01-09 03:42 | NUR ---
pt RESTING IN THE BED WITH EYES CLOSED. RR EVEN AND UNLABORED. CALL LIGHT WITHIN REACH.
--- NOTE | 2024-01-09 05:35 | NUR ---
ASSESSMENT AND VITAL SIGNS DONE, SCHEDULED MEDS ADMINISTERED. pt UP TO USE THE URINAL. SBA. pt DENIES ANY OTHER NEEDS AT THIS TIME. CALL LIGHT WITHIN REACH. LUNG SOUNDS ARE CLEAR.
--- NOTE | 2024-01-09 07:52 | NUR ---
recieved report from nurse at 0706. pt is currently awake and watching television. . no concerns noted or requests made at this time. call light within reach
--- NOTE | 2024-01-09 08:01 | NUR ---
PATIENT SLEEPING IN BED AT THIS TIME. CALL LIGHT WITHIN REACH, NO FURTHER NEEDS AT THIS TIME.
[2024-01-09] MEDS ORDERED: metOLazone 5 MG TAB PO ONE (08:15)
--- NOTE | 2024-01-09 08:23 | NUR ---
PATIENT AMBULATED ON RA AND LOWEST SATURATION WAS 87% WITH RECOVERY TIME LESS THAN 1 MINUTE.
--- NOTE | 2024-01-09 08:24 | NUR ---
med rec complete.
--- NOTE | 2024-01-09 08:40 | NUR ---
VISITED TO ASK IF PT DESIRED FRICTION PAINT MACHINE TENDER VISIT. PT INIDICATED NO PREFERENCE AND ACCEPTED OFFERED VISIT. LEFT NOTE IN SACRISTRY.
[2024-01-09] MEDS ORDERED: CLOPIDOGREL BISULFATE 75 MG TAB PO SCH (09:00)
[2024-01-09 09:01] LABS: ANION GAP 6.5 (7-21); BUN/CREATININE RATIO 21.69 (6.0-28.6); CALCIUM 8.7 mg/dL (8.5-10.1); CREATININE, SERUM 1.06 mg/dL (0.70-1.30); POTASSIUM 3.5 mmol/L (3.5-5.1)
--- NOTE | 2024-01-09 09:14 | NUR ---
PATIENT IN CHAIR AT THIS TIME. MANAGER DIALYSIS PROVIDED PATIENT WITH FRESH LINENS. CALL LIGHT WITHIN REACH, NO FURTHER NEEDS AT THIS TIME.
--- NOTE | 2024-01-09 12:40 | NUR ---
IN PT REQUESTING TOILETING. SBA WITH FWW FROM BED TO RESTROOM. PT NOTED TO BE INCONTINENT OF URINE. NEW ATTENDS PLACED. REDNESS NOTED TO PTs BUTTOCKS AND BILATERAL HIPS. BARRIER CREAM APPLIED. SBA WITH FWW BACK TO BED. PT SITTING UP IN BED. CPOX PLACED. BED ALARM ON. PT DENIES ANY OTHER NEEDS AT THIS TIME. CALL LIGHT IN REACH.
--- NOTE | 2024-01-09 13:10 | NUR ---
IN BED ALARM ALARMING. PT NOTED TO BE SITTING ON EDGE OF BED. PT REPORTING TOILETING NEEDS. SBA WITH FWW FROM BED TO RESTROOM. VOID NOTED. SBA BACK TO BED. PT PLACED BACK ON CPOX. PT INFORMED TO CALL AND PT STATES "I DID NOT WANT TO BOTHER YOU." INFORMED PT IT IS OUR JOB AND FOR SAFTEY PURPOSES. CALL LIGHT HANDED TO PT AND INFORMED TO CALL. SIDE RAILS UP FOR SAFTEY. BED ALARM ON. PT DENIES ANY OTHER NEEDS.
--- NOTE | 2024-01-09 14:51 | NUR ---
IN PT WAVES AT THIS RN WHILE WALKING BY. PT REPORTING TOILETING NEEDS. PT SITTING UP IN RECLINER. SBA WITH FWW FROM RECLINER TO RESTROOM. PTs ATTENDS NOTED TO BE SOILD WITH URINE, NEW ATTENDS PLACED, ALYCIA-CARE COMPLETE. BARRIER CREAM APPLIED TO BUTTOCKS. SBA BACK TO RECLINER WITH FWW. PTs LINENES ON BED NOTED TO BE WET. LINENS CHANGED. PT REQUESTING WATER, WATER PROVIDED. PT SITTING UP IN RECLINER, CHAIR ALARM ON AND CALL LIGHT IN REACH.
--- NOTE | 2024-01-09 15:28 | NUR ---
PATIENT IN CHAIR AT THIS TIME. MACHINE TRY OUT SETTER ASSISTED PATIENT IN USING THE URINAL, MACHINE TRY OUT SETTER REOCRDED VOIDINGS IN ROOM. CHAIR ALARM ON, CALL LIGHT WITHIN REACH, NO FURTHER NEEDS AT THIS TIME.
--- NOTE | 2024-01-09 18:24 | NUR ---
PT HAS BEEN VERYIMPULSIVE TODAY WITH GETTING UP OUT OF CHAIR AND BED DUE TO URGENT NEED OF USING THE URINAL DUE TO LASIX. PT HAS BEEN RESTING CURRENTLY IN CHAIR WATCHING TELEVISION. NO CONCERNS NOTED AT THIS TIME CALL LIGHT WITHIN REACH
--- NOTE | 2024-01-09 19:36 | NUR ---
REPORT RECEIVED FROM RHONDA LYNCH. pt RESTING IN THE CHAIR. pt REQUESTED TO GO TO THE BED. THIS RN ASSISSTED pt BACK TO THE BED, SBA. BED ALARM ON. BOARD UPDATED. CALL LIGHT WITHIN REACH. NO OTHER NEEDS A THIS TIME.
--- NOTE | 2024-01-09 19:56 | NUR ---
CALL LIGHT ANSWERED. PT NEEDED TO VOID. MINIATURE MODEL MAKER ASSISTED PT TO STAND AT BEDSIDE AND USE URINAL. OUTPUT MEASURED AND URINAL EMPTIED. PT ASSISTED BACK TO BED. PT STATES NO FURTHER NEEDS AT THIS TIME. CALL LIGHT WITHIN REACH.
--- NOTE | 2024-01-09 20:17 | NUR ---
HEADER UP OBTAINED VITALS AND I&O. PT STATES NO FURTHER NEEDS AT THIS TIME. CALL LIGHT PLACED WITHIN REACH.
--- NOTE | 2024-01-09 20:35 | NUR ---
ASSESSMENT DONE. LUNG SOUNDS ARE CLEAR. WATER REFRESHED. SCHEDULED MEDICATION ADMINISTERED, SEE MAR. pt DENIES ANY OTHER NEEDS AT THIS TIME. NO EDEMA. BED ALARM ON. CALL LIGHT WITHIN REACH.
--- NOTE | 2024-01-09 21:54 | NUR ---
CALL LIGHT ANSWERED. PT NEEDED TO VOID. ENCHILADA MAKER ASSISTED PT TO STAND AT BEDSIDE AND USE URINAL. OUTPUT NOTED AND URINAL EMPTIED. PT ASSISTED BACK TO BED. PT STATES NO FURTHER NEEDS AT THIS TIME. CALL LIGHT WITHIN REACH.
--- NOTE | 2024-01-10 00:01 | NUR ---
IN TO CHECK ON pt. pt CALL THIS RN IN TO USE THE URINAL. pt STOOD AT BED SIDE. pt BACK TO BED. VITAL SIGNS DONE. SCHEDULED MEDS ADMINISTERED. NO OTHER NEEDS AT THIS TIME. CALL LIGHT WITHIN REACH.
--- NOTE | 2024-01-10 01:32 | NUR ---
pt UP TO USE THE URINAL. SBA AT BED SIDE. pt BACK TO BED. 2LNC AT NIGHT. NO OTHER NEEDS AT THIS TIME. CALL LIGHT WITHIN REACH. BED ALARM ON.
--- NOTE | 2024-01-10 04:06 | NUR ---
pt RESTING IN BED WITH EYES CLOSED. RR EVEN AND UNLABORED. CALL LIGHT WITHIN REACH.
[2024-01-10 04:31] VITALS: BP 98/60
[2024-01-10 04:35] VITALS: BP 98/60
--- NOTE | 2024-01-10 04:41 | NUR ---
BED ALARM ANSWERED. PT AT EDGE OF BED STATING HE NEEDED TO USE THE URINAL. LICENSED AND CERTIFIED MIDWIFE ASSISTED PT TO STAND AT BEDSIDE AND USE URINAL. OUTPUT MEASURED. PT ASSISTED BACK TO BED. URINAL EMPTIED. LICENSED AND CERTIFIED MIDWIFE THEN OBTAINED VITALS AND I&O. PT NASAL CANNULA PLACED BACK ON. PT STATES NO FURTHER NEEDS AT THIS TIME. CALL LIGHT WITHIN REACH.
--- NOTE | 2024-01-10 05:13 | NUR ---
PT rested througout the night. cpox on. bed alarm on. SBA with urinal at bed side. 2LNC due to PT desatting down to the high 70's then recovering quickly multiple times. lung sounds are clear.
--- NOTE | 2024-01-10 06:30 | NUR ---
BED ALARM ANSWERED. PT SITTING AT EDGE OF BED NEEDING TO USE URINAL. ENZYME CHEMIST ASSISTED PT TO STAND AND USE URINAL. PT THEN ASSISTED BACK TO BED. OUTPUT NOTED AND URINAL EMPTIED. PT STATES NO FURTHER NEEDS AT THIS TIME. CALL LIGHT WITHIN REACH. BED ALARM ON.
--- NOTE | 2024-01-10 07:15 | NUR ---
RECEIVED REPORT FROM SYED LOVE. PT RESTING IN BED WITH EYES CLOSED, O2 SATURATION >95% PER CPOX. CALL LIGHT WITHIN REACH. BED ALARM ON FOR SAFETY.
--- NOTE | 2024-01-10 07:56 | NUR ---
PATIENT WAS TRYING TO GET UP IN BED, NAIL GALVANIZER WENT INTO ROOM TO SHUT BED ALARM OFF. PATIENT STATED THAT HE NEEDED TO USE THE URINAL, NAIL GALVANIZER ASSISTED PATIENT IN USING THE URINAL. PAITENT IN CHAIR AT THIS TIME WITH ALARMS ON. CALL LIGHT WITHIN REACH, NO FURTHER NEEDS AT THIS TIME.
--- NOTE | 2024-01-10 08:16 | NUR ---
PT STATES HE WOULD LIKE TO SHOWER LATER THIS MORNING, SHOWER SUPPLIES PROVIDED, PT STATES NO FURTHER NEEDS AT THIS TIME, CALL LIGHT WITHIN REACH.
--- NOTE | 2024-01-10 08:53 | NUR ---
RA TRIAL STARTED AT 0833. 95% ON RA AT 0848.
[2024-01-10 09:14] LABS: ANION GAP 8.1 (7-21); BUN/CREATININE RATIO 17.51 (6.0-28.6); CALCIUM 9.2 mg/dL (8.5-10.1); CREATININE, SERUM 1.37 mg/dL (0.70-1.30); POTASSIUM 3.1 mmol/L (3.5-5.1)
[2024-01-10 09:20] VITALS: BP 115/52
[2024-01-10 09:21] VITALS: BP 115/52
--- NOTE | 2024-01-10 09:30 | NUR ---
PT SITTING UP IN BED AWAKE, TAKES PO MEDICATIONS W/O DIFFICULTY. PT DENIES PAIN, SOB, OR NAUSEA AT THIS TIME. TELE AND CPOX REMAIN IN PLACE. LUNG SOUNDS DIMINISHED IN BILATERAL LOWER LOBES. PT STANDS AT CHAIR TO USE URINAL WITH SBA. PT BACK TO CHAIR, CHAIR ALARM ON FOR SAFETY. PT STATES NO FURTHER NEEDS AT THIS TIME. CALL LIGHT WITHIN REACH.
[2024-01-10] MEDS ORDERED: ELIQUIS5 MG PO ×2 (09:50→09:52)
[2024-01-10] MEDS ORDERED: METOPROLOL TART25 MG PO (09:51)
[2024-01-10] MEDS ORDERED: LASIX40 MG PO (09:52)
[2024-01-10] MEDS ORDERED: POTASSIUM CHLO20 ME1 PO (09:53)
--- NOTE | 2024-01-10 09:56 | NUR ---
MD STATES TO ORDER 40 MEQ OF PO POTASSIUM NOW AND AN ADDITIONAL DOSE OF 40 MEQ PO POTASSIUM IN ONE HOUR. MD ALSO STATES TO ORDER EKG. REPEAT BACK PERFORMED, ORDERS ENTERED.
--- NOTE | 2024-01-10 10:11 | NUR ---
VERBAL ORDER RECEIVED FROM DR CARVAJAL FOR A POTASSIUM OF 3.1 FOR ORAL POTASSIUM 40 MEQ NOW AND REPEAT IN 1 HR. ORDER PLACED.
[2024-01-10] MEDS ORDERED: POTASSIUM CHLORIDE 10 MEQ TABCR PO ONE ×2 (10:15→11:30)
--- NOTE | 2024-01-10 10:15 | NUR ---
PT ATTEMPTS TO GO TO RESTROOM INDEPENDENTLY, CHAIR ALARMS, RN AND PHYSICAL THERAPIST TO BEDSIDE, PT ASSISTED TO RESTROOM. THIS RN TO BEDSIDE, PT BACK TO CHAIR FROM RESTROOM WITH FWW AND 1PA. PT STATES NO FURTHER NEEDS AT THIS TIME, CALL LIGHT WITHIN REACH, CHAIR ALARM ON FOR SAFETY.
--- NOTE | 2024-01-10 11:33 | NUR ---
PATIENT NEEDED ASSISTANCE USING THE URINAL. TUTORING MANAGER ASSISTED PATIENT AND CHARTED VOIDINGS IN ROOM ON CHART. TUTORING MANAGER NOTICED PATIENT HAD A BLOODY NOSE, RN WAS NOTIFIED AND RN GAVE HIM A WARM WASHCLOTH. CALL LIGHT WITHIN REACH OF PATIENT, CHAIR ALARM IS ON, NO FURTHER NEEDS AT THIS TIME.
--- NOTE | 2024-01-10 12:10 | NUR ---
CHAIR ALARMING, THIS RN TO BEDSIDE, PT IS STANDING AT CHAIR, BEGINS TO TAKE A STEP THAT APPEARS UNSTEADY. THIS RN ASSISTS PT BACK TO CHAIR. PT STATES HE NEEDS TO VOID, URINAL BROUGHT TO CHAIR AND PT UP WITH SBA TO USE URINAL. PT STATES NO FURTHER NEEDS AT THIS TIME. PT EDUCATION REVIEWED WITH PT ON FALL PRECAUTIONS, SAFETY, AND CALL LIGHT USE, PT VERBALIZES UNDERSTANDING. CHAIR ALARM ON FOR SAFETY, CALL LIGHT WITHIN REACH.
--- NOTE | 2024-01-10 13:31 | NUR ---
Received report from [id number] nurse. Pt respirations even and regular. ASSISTANT MEDIA BUYER assisting pt up to restroom.
[2024-01-10 13:35] VITALS: BP 112/61
[2024-01-10 13:38] VITALS: BP 112/61
--- NOTE | 2024-01-10 22:22 | EKG ---
[facility] [address] [facility] [place] [address] Signed AV dual-paced rhythm with prolonged AV conduction with occasional premature ventricular complexes Abnormal ECG When compared with ECG of 07-JAN-2024 09:20, No significant change was found Confirmed by Jodi Meza MD () on 01/10/2024 10:21:57 PM Electronically Signed By: JODI MEZA MD 01/10/242221 PATIENT NAME: DEANA MELARA OLEG Electrocardiogram DATE OF : 35 PHYSICIAN: JODI MEZA MD REPORT #: [id number] REPORT IS CONFIDENTIAL AND NOT TO BE RELEASED WITHOUT AUTHORIZATION
[2024-01-11] MEDS ORDERED: FLUTICASONE/UMECLIDIN/VILANTER 1 EACH BLST.W.DEV INH SCH (09:00)
== END 2024-01-10 14:34 | disposition home or self-care (01) | DRG 291 ==
LOC: ED 12:02 → MS 16:27
PROVIDERS: Emergency Medicine; ADMIT Internal Medicine; ATTEND Internal Medicine
DX: I11.0 Hypertensive heart disease with heart failure (principal); J96.01 Acute respiratory failure with hypoxia; I50.9 Heart failure, unspecified; I48.0 Paroxysmal atrial fibrillation; N40.0 Benign prostatic hyperplasia without lower urinary tract symptoms; Z66 Do not resuscitate; I45.10 Unspecified right bundle-branch block; R94.31 Abnormal electrocardiogram [ECG] [EKG]; Z86.73 Personal history of transient ischemic attack (TIA), and cerebral infarction without residual deficits; Z88.5 Allergy status to narcotic agent; Z88.0 Allergy status to penicillin; Z79.82 Long term (current) use of aspirin
CPT/HCPCS: 36415; 71045; 71260; 80048; 80053; 82803; 83735; 83880; 84484; 85025; 85060; 93005; 93010; 93306; 94640; 94760; 94762; 97116; 97161; 97165; 97530; 97535; 99285-25; A9270; J1940; J3475; Q9967; U0002